=== PATIENT | male | born 1995 ===

== ENCOUNTER 2023-11-13 08:23 | Emergency (ER) | payer BC ==
[2023-11-13] MEDS: Sodium Chloride 0.9% 2.5 ML Syringe FLUSH PRN (08:35)
[2023-11-13] MEDS: Sodium Chloride 0.9% 10 ML Syringe FLUSH PRN (08:35)
[2023-11-13 08:40] LABS: BASOPHILS ABSOLUTE AUTO 0.04 K/uL (0.00-0.20); BASOPHILS PERCENT AUTO 0.8 % (0.0-1.0); EOSINOPHILS ABSOLUTE AUTO 0.03 K/uL (0.00-0.45); EOSINOPHILS PERCENT AUTO 0.6 % (0.0-6.0); HEMATOCRIT 41.2 % (42.0-52.0); HEMOGLOBIN 13.6 g/dL (14.0-18.0); LYMPHOCYTES ABSOLUTE AUTO 2.84 K/uL (1.00-4.80); LYMPHOCYTES PERCENT AUTO 58.8 % (24.0-44.0); MEAN CORPUSCULAR HEMOGLOBIN 26.8 pg (28.0-32.0); MEAN CORPUSCULAR VOLUME 81.3 fL (83.0-99.0); MEAN PLATELET VOLUME 9.4 fL (9.4-12.4); MONOCYTES ABSOLUTE AUTO 0.45 K/uL (0.00-0.80); MONOCYTES PERCENT AUTO 9.3 % (0.0-8.0); NEUTROPHILS ABSOLUTE AUTO 1.47 K/uL (1.80-7.70); NEUTROPHILS PERCENT AUTO 30.5 % (41.0-71.0); PLATELET COUNT,PLT 262 K/uL (150-400); RED BLOOD CELL COUNT 5.07 M/uL (4.52-5.90); WHITE BLOOD CELL COUNT,WBC 4.83 K/uL (3.9-11.3)
[2023-11-13 09:02] LABS: A/G RATIO 1.2 (0.9-1.6); BILIRUBIN TOTAL 2.3 mg/dL (0.2-1.0); CALCIUM 8.5 mg/dL (8.5-10.1); CARBON DIOXIDE,CO2 27.6 mmol/L (21.0-32.0); CREATININE 0.8 mg/dL (0.8-1.3); EST CRCL DRUG DOSING (CG) 117.45 mL/min; POTASSIUM,K 3.7 mmol/L (3.5-5.1); PROTEIN TOTAL,TP 7.4 g/dL (6.4-8.2)
[2023-11-13 09:07] LABS: APPEARANCE,URINE CLEAR; BILIRUBIN,URINE NEGATIVE (NEGATIVE); COLOR,URINE YELLOW; GLUCOSE,URINE NEGATIVE (NEGATIVE); KETONES,URINE 15 mg/dL (NEGATIVE); LEUKOCYTE ESTERASE,URINE NEGATIVE (NEGATIVE); NITRITE,URINE NEGATIVE (NEGATIVE); OCCULT BLOOD,URINE LARGE (NEGATIVE); PROTEIN,URINE NEGATIVE (NEGATIVE)
[2023-11-13 09:07] LABS: LACTIC ACID 0.8 mmol/L (0.4-2.0)
[2023-11-13 09:17] LABS: BACTERIA,URINE NOT SEEN (NEGATIVE); EPITHELIAL CELLS,URINE RARE (NONE-FEW); RBC,URINE 20-25 (0-2/HPF); WBC,URINE NONE SEEN (0-5/HPF)
[2023-11-13 09:18] LABS: MUCUS,URINE HEAVY (NONE-MOD)
== END 2023-11-13 13:49 | disposition home or self-care (01) ==
LOC: MW.ED 08:23
DX: R31.9 Hematuria, unspecified (principal); R10.30 Lower abdominal pain, unspecified; Z75.8 Other problems related to medical facilities and other health care
CPT/HCPCS: 80053; 81001; 83605; 83690; 85025; 99284; J3490; 99282